=== PATIENT | male | born 1955 | race Caucasian/White ===

== ENCOUNTER → 2020-07-03 09:50 | Outpatient (BNVA) | payer BC, MEDICARE, SELFPAY | PROVIDERS: PCP Internal Medicine; Visit Provider Orthopaedic Surgery | DX: Z76.89 Persons encountering health services in other specified circumstances (principal) ==

== ENCOUNTER 2021-11-25 09:00 | Outpatient (REF) | payer MEDICARE, SELFPAY ==
--- NOTE | ~2021-11-25 | XR_ITS ---
EXAMINATION: XR SHOULDER, LEFT CLINICAL INFORMATION: Left shoulder pain. COMPARISON: None TECHNIQUE: AP external rotation, Grashey, scapular Y, and axillary views of the left shoulder. FINDINGS: The bones and soft tissues are normal. No fracture. Glenohumeral and acromioclavicular alignment is anatomic with normal joint space. No abnormal soft tissue calcifications. XR/XR shoulder LT min 2V IMPRESSION: Unremarkable left shoulder.
[2021-11-25 09:20] LABS: MANUAL DIFF FLAG NO
[2021-11-25 09:37] LABS: Basophils Percent Auto 0.5 % (0-2); Eosinophils Absolute Auto 0.1 X10*3/uL (0.0-0.4); Eosinophils Percent Auto 1.1 % (0-4); Hematocrit 49.1 % (42.0-52.0); Imm Gran Abs Auto 0.04 X10*3/uL (0.00-0.03); Imm Gran Pct Auto 0.5 % (0.0-0.4); Lymphocytes Absolute Auto 1.8 X10*3/uL (1.2-4.9); Mean Corpuscular HGB Conc 32.6 g/dl (31.0-36.0); Mean Corpuscular Hemoglobin 28.2 pg (27.0-33.0); Mean Corpuscular Volume 86.4 fL (80.0-98.0); Mean Platelet Volume 11.5 fL (9.4-12.4); Monocytes Percent Auto 10.9 % (2-11); Neutrophils Absolute Auto 5.9 x10*3/uL (2.0-8.3); Platelet Count 169 X10*3/uL (160-400); Red Blood Count 5.68 X10*6/uL (4.60-5.80); Red Cell Distribution Width 13.2 % (11.0-16.0); White Blood Count 8.8 X10*3/uL (4.8-10.8)
[2021-11-25 10:11] LABS: Alanine Aminotransferase 35 U/L (0-40); Albumin Level 4.4 g/dL (3.5-5.0); Alkaline Phosphatase 108 U/L (39-117); Anion Gap 13 (12-20); Aspartate Amino Transferase 19 U/L (5-37); Bilirubin Total 0.6 mg/dL (0.0-1.0); Blood Urea Nitrogen 21 mg/dL (9-16); Calcium 9.8 mg/dL (8.4-10.2); Carbon Dioxide 26 mmol/L (22-29); Chloride 106 mmol/L (96-108); Cholesterol 193 mg/dL; Estimated Glomerular Filt Rate > 60; Glucose Fasting 105 mg/dL (60-99); HDL Cholesterol 29 mg/dL; LDL Cholesterol Calculated 96 mg/dl; Potassium 4.5 mmol/L (3.3-5.1); Sodium 140 mmol/L (135-145); Total Protein 7.4 g/dL (6.5-8.0); Triglycerides 341 mg/dL
[2021-11-25 10:25] LABS: Thyroid Stimulating Hormone 1.81 uIU/mL (0.32-4.0)
[2021-11-26 14:33] LABS: Prostate Specific Antigen 2.25 ng/mL (<0.05-4.0); Vitamin D 25-OH Total 17.6 ng/mL (>30)
[2021-11-30 21:06] LABS: Testosterone, Free 51.7 pg/mL (35.0-155.0); Testosterone, Total 281 ng/dL (250-1100)
== END 2021-11-25 09:01 | disposition home or self-care (01) ==
LOC: HO.LAB 09:00
PROVIDERS: PCP Internal Medicine; Visit Provider Internal Medicine
DX: Z00.00 Encounter for general adult medical examination without abnormal findings (principal); Z12.5 Encounter for screening for malignant neoplasm of prostate; M25.512 Pain in left shoulder; I10 Essential (primary) hypertension; N52.9 Male erectile dysfunction, unspecified; K59.00 Constipation, unspecified
CPT/HCPCS: 36415; 73030; 80053; 80061; 82306; 84153; 84402; 84403; 84443; 85025

== ENCOUNTER 2022-10-15 08:01 | Outpatient (REF) | payer MEDICARE, SELFPAY ==
[2022-10-15 08:18] LABS: MANUAL DIFF FLAG NO
[2022-10-15 08:46] LABS: Basophils Percent Auto 0.5 % (0-2); Eosinophils Absolute Auto 0.1 X10*3/uL (0.0-0.4); Eosinophils Percent Auto 1.4 % (0-4); Hematocrit 48.5 % (42.0-52.0); Imm Gran Abs Auto 0.03 X10*3/uL (0.00-0.03); Imm Gran Pct Auto 0.3 % (0.0-0.4); Lymphocytes Absolute Auto 1.9 X10*3/uL (1.2-4.9); Lymphocytes Percent Auto 21.8 % (20-40); Mean Corpuscular Hemoglobin 28.2 pg (27.0-33.0); Mean Corpuscular Volume 85.4 fL (80.0-98.0); Monocytes Absolute Auto 0.9 X10*3/uL (0.1-1.2); Monocytes Percent Auto 10.6 % (2-11); Neutrophils Absolute Auto 5.7 x10*3/uL (2.0-8.3); Neutrophils Percent Auto 65.4 % (45-73); Platelet Count 168 X10*3/uL (160-400); Red Blood Count 5.68 X10*6/uL (4.60-5.80); Red Cell Distribution Width 13.2 % (11.0-16.0); White Blood Count 8.7 X10*3/uL (4.8-10.8)
[2022-10-15 09:11] LABS: Alanine Aminotransferase 32 U/L (0-40); Albumin Level 4.4 g/dL (3.5-5.0); Alkaline Phosphatase 100 U/L (39-117); Anion Gap 15 (12-20); Aspartate Amino Transferase 20 U/L (5-37); Bilirubin Total 1.3 mg/dL (0.0-1.0); Blood Urea Nitrogen 18 mg/dL (9-16); Calcium 9.9 mg/dL (8.4-10.2); Carbon Dioxide 26 mmol/L (22-29); Chloride 105 mmol/L (96-108); Cholesterol 172 mg/dL; Estimated Glomerular Filt Rate > 60; Glucose Fasting 120 mg/dL (60-99); HDL Cholesterol 32 mg/dL; LDL Cholesterol Calculated 89 mg/dl; Potassium 4.9 mmol/L (3.3-5.1); Sodium 141 mmol/L (135-145); Triglycerides 259 mg/dL
[2022-10-15 09:30] LABS: Thyroid Stimulating Hormone 1.78 uIU/mL (0.32-4.0); Vitamin D 25-OH Total 24.7 ng/mL (>30)
== END 2022-10-15 08:02 | disposition home or self-care (01) ==
LOC: HO.LAB 08:01
PROVIDERS: PCP Internal Medicine; Visit Provider Internal Medicine
DX: I10 Essential (primary) hypertension (principal); N52.9 Male erectile dysfunction, unspecified; K29.00 Acute gastritis without bleeding; Z12.5 Encounter for screening for malignant neoplasm of prostate
CPT/HCPCS: 36415; 80053; 80061; 82306; 84153; 84443; 85025

== ENCOUNTER 2023-01-27 14:29 | Outpatient (REF) | payer MEDICARE, SELFPAY | END 2023-01-27 14:30 | disposition home or self-care (01) | LOC: HO.SH 14:29 | PROVIDERS: Visit Provider Internal Medicine | DX: Z01.118 Encounter for examination of ears and hearing with other abnormal findings (principal); H90.3 Sensorineural hearing loss, bilateral | CPT/HCPCS: 92557; 92567 ==

== ENCOUNTER 2023-01-27 15:53 | Outpatient (REF) | payer SELFPAY | END 2023-01-27 15:54 | disposition home or self-care (01) | LOC: HO.HAP 15:53 | PROVIDERS: Visit Provider Internal Medicine | DX: Z46.1 Encounter for fitting and adjustment of hearing aid (principal); H90.3 Sensorineural hearing loss, bilateral | CPT/HCPCS: V5011; V5020 ==

== ENCOUNTER 2023-07-11 08:03 | Outpatient (REF) | payer MEDICARE, SELFPAY ==
[2023-07-11 09:42] LABS: Alanine Aminotransferase 39 U/L (0-40); Albumin Level 4.2 g/dL (3.5-5.0); Alkaline Phosphatase 95 U/L (39-117); Anion Gap 13 (12-20); Aspartate Amino Transferase 25 U/L (5-37); Bilirubin Total 0.8 mg/dL (0.0-1.0); Blood Urea Nitrogen 25 mg/dL (9-16); Calcium 9.4 mg/dL (8.4-10.2); Carbon Dioxide 24 mmol/L (22-29); Chloride 110 mmol/L (96-108); Cholesterol 164 mg/dL (<200); Estimated Glomerular Filt Rate > 60; Glucose Fasting 115 mg/dL (60-99); HDL Cholesterol 30 mg/dL (>40); LDL Cholesterol Calculated 101 mg/dL (<100); Potassium 4.2 mmol/L (3.3-5.1); Sodium 143 mmol/L (135-145); Total Protein 7.2 g/dL (6.5-8.0); Triglycerides 167 mg/dL (<150)
== END 2023-07-11 08:04 | disposition home or self-care (01) ==
LOC: HO.LAB 08:03
PROVIDERS: PCP Internal Medicine; Visit Provider Internal Medicine
DX: Z00.00 Encounter for general adult medical examination without abnormal findings (principal); I10 Essential (primary) hypertension; E78.1 Pure hyperglyceridemia
CPT/HCPCS: 36415; 80053; 80061

== ENCOUNTER 2023-11-11 08:16 | Outpatient (REF) | payer MEDICARE, SELFPAY ==
[2023-11-11 08:29] LABS: MANUAL DIFF FLAG NO
[2023-11-11 08:52] LABS: Basophils Absolute Auto 0.1 X10*3/uL (0.0-0.2); Basophils Percent Auto 0.6 % (0-2); Eosinophils Absolute Auto 0.2 X10*3/uL (0.0-0.4); Eosinophils Percent Auto 1.7 % (0-4); Hematocrit 47.8 % (42.0-52.0); Hemoglobin 15.7 g/dl (14.0-18.0); Imm Gran Abs Auto 0.05 X10*3/uL (0.00-0.03); Imm Gran Pct Auto 0.6 % (0.0-0.4); Lymphocytes Percent Auto 22.4 % (20-40); Mean Corpuscular HGB Conc 32.8 g/dl (31.0-36.0); Mean Corpuscular Hemoglobin 28.4 pg (27.0-33.0); Mean Corpuscular Volume 86.6 fL (80.0-98.0); Mean Platelet Volume 11.2 fL (9.4-12.4); Monocytes Absolute Auto 0.8 X10*3/uL (0.1-1.2); Monocytes Percent Auto 9.2 % (2-11); Neutrophils Absolute Auto 5.8 x10*3/uL (2.0-8.3); Neutrophils Percent Auto 65.5 % (45-73); Platelet Count 175 X10*3/uL (160-400); Red Blood Count 5.52 X10*6/uL (4.60-5.80); Red Cell Distribution Width 13.2 % (11.0-16.0); White Blood Count 8.9 X10*3/uL (4.8-10.8)
[2023-11-11 09:34] LABS: Alanine Aminotransferase 26 U/L (0-40); Albumin Level 4.2 g/dL (3.5-5.0); Alkaline Phosphatase 115 U/L (39-117); Anion Gap 11 (12-20); Aspartate Amino Transferase 18 U/L (5-37); Bilirubin Total 0.6 mg/dL (0.0-1.0); Blood Urea Nitrogen 15 mg/dL (9-16); Calcium 9.4 mg/dL (8.4-10.2); Carbon Dioxide 29 mmol/L (22-29); Chloride 107 mmol/L (96-108); Cholesterol 189 mg/dL (<200); Estimated Glomerular Filt Rate > 60; Glucose Fasting 126 mg/dL (60-99); HDL Cholesterol 29 mg/dL (>40); LDL Cholesterol Calculated 112 mg/dL (<100); Potassium 4.6 mmol/L (3.3-5.1); Sodium 142 mmol/L (135-145); Total Protein 7.3 g/dL (6.5-8.0); Triglycerides 244 mg/dL (<150)
[2023-11-11 09:35] LABS: Estimated Average Glucose 126 mg/dL; Hemoglobin A1C 164.3839 umol/L
[2023-11-11 09:52] LABS: PSA,Total (Free>4and<10) 3.23 ng/mL (0.00-4.00); Thyroid Stimulating Hormone 1.23 uIU/mL (0.32-4.0); Vitamin D 25-OH Total 9.8 ng/mL (>30)
== END 2023-11-11 08:17 | disposition home or self-care (01) ==
LOC: HO.LAB 08:16
PROVIDERS: PCP Internal Medicine; Visit Provider Internal Medicine
DX: E78.1 Pure hyperglyceridemia (principal); I10 Essential (primary) hypertension; N52.9 Male erectile dysfunction, unspecified; Z12.5 Encounter for screening for malignant neoplasm of prostate
CPT/HCPCS: 36415; 80053; 80061; 82306; 83036; 84153; 84443; 85025

== ENCOUNTER 2024-02-28 08:07 | Outpatient (REF) | payer MEDICARE, SELFPAY ==
[2024-02-28 09:52] LABS: Vitamin D 25-OH Total 55.2 ng/mL (>30)
== END 2024-02-28 08:08 | disposition home or self-care (01) ==
LOC: HO.LAB 08:07
PROVIDERS: PCP Internal Medicine; Visit Provider Internal Medicine
DX: E55.9 Vitamin D deficiency, unspecified (principal)
CPT/HCPCS: 36415; 82306

== ENCOUNTER 2024-07-18 07:58 | Outpatient (REF) | payer MEDICARE, SELFPAY ==
--- NOTE | 2024-07-18 09:40 | MHC.AU.HA3 ---
Hearing Instrument Follow-Up- Binaural Date of Visit: 07/18/24 Right Ear: Make, Model, Color, Serial Number: Phondavid CROS [id number] SN: [id number] Color: Champagne Back Panel Padder Repair Warranty: 10/28/2022 Back Panel Padder Loss and Damage Warranty: 10/28/2022 Battery Size: 312 Dividend Clerk/Slim Tube: #3 CROS Tube Earmold/Dome/CShell/SlimTip:Small open dome Dispensed By: [facility] Date of Fittin08/21/2019 Left Ear: Make, Model, Color, Serial Number: Low Reed B 50-M SN: [id number] Color: Champagne Back Panel Padder Repair Warranty: 10/28/2022 Back Panel Padder Loss and Damage Warranty: 10/28/2022 Battery Size: 312 Dividend Clerk/Slim Tube: #3 Slim Tube Earmold/Dome/CShell/SlimTip: Medium closed dome Dispensed By: [facility] Date of Fittin08/21/2019 Follow-Up Summary: Updated hearing test - see audio. Occluding cerumen, right ear; Significant, non-occluding cerumen, left ear - Recommend bilateral cerumen removal by PCP. Lost right CROS device. Discussed possible VEL[place]SQUEZ benefit through [facility] Medicare Advantage insurance. Lester insists no benefit, only his FSA card which he can use anywhere. Advised to inquire about possible 3rd alliance party benefit. Briefly discussed new HAs, provided benito list. Recommended two new HAs; however, Lester interested in only replacing right CROS device. Advised no longer made by leak hunter due to age but can look into refurbished device through [facility]. Will call Lester with information from Tina regarding refurbished Phonak CROS [id number], if available, pricing, etc. Recommendations: Hearing instrument follow-up or maintenance as needed. Please contact our clinic with any questions or concerns. Diagnosis Code(s): Primary Diagnosis: H90.3 Bilateral Sensorineural Hearing Loss Signature: Provider: Min Vargas, [facility]
== END 2024-07-18 07:59 | disposition home or self-care (01) ==
LOC: HO.SH 07:58
PROVIDERS: Visit Provider Internal Medicine
DX: Z01.118 Encounter for examination of ears and hearing with other abnormal findings (principal); H90.3 Sensorineural hearing loss, bilateral
CPT/HCPCS: 92557

== ENCOUNTER 2024-08-31 09:05 | Outpatient (REF) | payer SELFPAY ==
--- OUTSIDE RECORDS SUMMARY | 2024-08-31 09:19 | XMS_ITS ---
Author [facility] Address [address] [place], [place] [id number] Care Team Providers Care Recording Engineer Name Role Phone Master Pollack Primary Care Provider REASON FOR VISIT Needs call back from office MEDICATIONS Medication SIG (Take, Route, Frequency, Duration) Notes Start Date End Date Status Amoxicillin-Pot Clavulanate 875-125 MG 1 tablet with food Orally every 12 hrs for 7 days 07/11/2024 Active Encounters Encounter Location Date Provider Diagnosis [facility] [address] [place] [phone] 07/11/2024 Master Pollack PLAN OF TREATMENT Medication Medication Name Sig Start Date Stop Date Notes Amoxicillin-Pot Clavulanate 875-125 MG 1 tablet with food Orally every 12 hrs for 7 days 07/11/2024
--- OUTSIDE RECORDS SUMMARY | 2024-08-31 09:19 | XMS_ITS ---
Author Organization [facility], [facility] [address] [place], [place] [id number] Care Team Providers Care Supervisor Buffing And Pasting Name Role Phone Master Pollack Primary Care Provider REASON FOR VISIT Message Encounters Encounter Location Date Provider Diagnosis Master Pollack DO, FACP [address] [place] [phone] 07/18/2024 Master Pollack PLAN OF TREATMENT No Information
--- OUTSIDE RECORDS SUMMARY | 2024-08-31 09:19 | XMS_ITS | Patient Health Record ---
Author Organization Master Pollack DO, [facility] Address [address] [place] [id number] Care Team Providers Care Tube Draw Helper Name Role Phone Master Pollack Primary Care Provider ALLERGIES No Known Allergies RESULTS Component Value Reference Range Notes Complete Blood Count Auto Di ff Reviewed date:11/11/2023 11:27:01 AM Interpretation:Normal Performing Lab:[facility], [address] [place] [phone] Notes/Report: White Blood Count 8.9 4.8-10.8 X10*3/uL Red Blood Count 5.52 4.60-5.80 X10*6/uL Hemoglobin 15.7 14.0-18.0 g/dl Hematocrit 47.8 42.0-52.0 % Mean Corpuscular Volume 86.6 80.0-98.0 fL Mean Corpuscular Hemoglobin 28.4 27.0-33.0 pg Mean Corpuscular HGB Conc 32.8 31.0-36.0 g/dl Red Cell Distribution Width 13.2 11.0-16.0 % Platelet Count 175 160-400 X10*3/uL Mean Platelet Volume 11.2 9.4-12.4 fL Neutrophils Percent Auto 65.5 45-73 % Imm Gran Pct Auto 0.6 0.0-0.4 % Lymphocytes Percent Auto 22.4 20-40 % Monocytes Percent Auto 9.2 2-11 % Eosinophils Percent Auto 1.7 0-4 % Basophils Percent Auto 0.6 0-2 % NRBC Pct Auto 0.0 0.0-0.2 /100WBC Neutrophils Absolute Auto 5.8 2.0-8.3 x10*3/u L Imm Gran Abs Auto 0.05 0.00-0.03 X10*3/uL Lymphocytes Absolute Auto 2.0 1.2-4.9 X10*3/u L Monocytes Absolute Auto 0.8 0.1-1.2 X10*3/uL Eosinophils Absolute Auto 0.2 0.0-0.4 X10*3/u L Basophils Absolute Auto 0.1 0.0-0.2 X10*3/uL NRBC Abs Auto 0.000 0.0-0.012 X10*3/uL Comprehensive Mathews. Panel Fa st Reviewed date:11/11/2023 11:27:01 AM Interpretation:Abnormal Performing Lab:[facility], [address] [place] [phone] Notes/Report: Sodium 142 135-145 mmol/L Potassium 4.6 3.3-5.1 mmol/L Chloride 107 96-108 mmol/L Carbon Dioxide 29 22-29 mmol/L Anion Gap 11 12-20 Blood Urea Nitrogen 15 9-16 mg/dL Creatinine 1.03 0.5-1.4 mg/dL Estimated Glomerular Filt Rate > 60 NOTE: For -Armenian individuals, multiply the result by 1.210. Chronic Kidney Disease: Estimated GFR < 60 mL/min/1.73m2 Severe Kidney Disease: Estimated GFR < 15 mL/min/1.73m2 Glucose Fasting 126 60-99 mg/dL A fasting glucose of 126 mg/dl or greater on more than one occasion is considered diagnostic of diabetes. Calcium 9.4 8.4-10.2 mg/dL Bilirubin Total 0.6 0.0-1.0 mg/dL Aspartate Amino Transferase 18 5-37 U/L Alanine Aminotransferase 26 0-40 U/L Total Protein 7.3 6.5-8.0 g/dL Albumin Level 4.2 3.5-5.0 g/dL Alkaline Phosphatase 115 39-117 U/L Lipid Panel Reviewed date:11/11/2023 11:27:01 AM Interpretation:Abnormal Performing Lab:[facility], [address] [place] [phone] Notes/Report: Triglycerides 244 <150 mg/dL Desirable Triglyceride: less than 150 mg/dL Borderline High Triglyceride 150-199 mg/dL High Triglyceride: 200-499 mg/dL Very High Triglyceride: greater than or equal to 5OO mg/dL Cholesterol 189 <200 mg/dL Desirable Cholesterol: less than 200 mg/dL Borderline High Cholesterol: 200-239 mg/dL High Cholesterol: greater than 239 mg/dL LDL Cholesterol Calculated 112 <100 mg/dL Desirable LDL: less than 100 mg/dL Near Optimal/Above Optimal LDL: 110-129 mg/dL Borderline High LDL: 130-159 mg/dL High LDL: 160-189 mg/dL Very High LDL: greater than or equal to 190 mg/dL HDL Cholesterol 29 >40 mg/dL Desirable HDL: greater than 40 mg/dL Note: This HDL assay may give artificially low results in patients with liver disease. PSA,Total (Free>4and<10) Reviewed date:11/11/2023 11:27:51 AM Interpretation:Normal Performing Lab:[facility], [address] [place] [phone] Notes/Report: PSA,Total (Free>4and<10) 3.23 0.00-4.00 ng/mL A Free PSA was not performed: The percentage of Free PSA can be used to enhance the differentiation of prostate cancer from benign prostatic disease in subjects whose PSA levels are between 4.0 and 10.0 ng/mL. For subjects whose PSA levels are below 4.0 or above 10.0 ng/mL, the risk of prostate cancer is determined on the basis of the PSA alone. Therefore the % Free PSA is recommended only for those subjects whose PSA levels are between 4.0 and 10.0 ng/mL. PSA methodology: Hoff Alinity i Chemiluminescent Microparticle Immunoassay (CMIA) Vitamin D 25-OH Total Reviewed date:11/11/2023 11:27:01 AM Interpretation:Abnormal Performing Lab:[facility], [address] [place] [phone] Notes/Report: Vitamin D 25-OH Total 9.8 >30 ng/mL Health Based Reference Values* < 20 ng/mL Deficient 20-30 ng/mL Insufficient > 30 ng/mL Sufficient *Tiarra SIDHU. N Engl J Med. 2007;357:266-280 Care must be taken in interpreting Vitamin D results from different laboratories and methodologies. Published data demonstrated that results from patients undergoing hemodialysis may show a negative bias when tested with various automated 25-OH vitamin D assays when compared to LC-MS/MS. When testing samples from patients whose predominant form of Vitamin D is Vitamin D2, such as patients receiving Vitamin D2 supplementation, results that are subtherapeutic should be confirmed with another method such as LC-MS/MS. Thyroid Stimulating Hormone Reviewed date:11/11/2023 11:27:01 AM Interpretation:Normal Performing Lab:[facility], [address] [place] [phone] Notes/Report: Thyroid Stimulating Hormone 1.23 0.32-4.0 uIU/ mL TSH 3rd Generation ([facility] [employer]) Hemoglobin A1c Reviewed date:11/11/2023 11:27:35 AM Interpretation:Abnormal Performing Lab:[facility], [address] [place] [phone] Notes/Report: Hemoglobin A1c % 6.0 <6.0 % Hemoglobin A1C Reference Range Adults: 4.8 - 6.0 % Non diabetic: < 6.0 % Goal: < 7.0 % Additional Action Suggested: > 8.0 % Note: Hemoglobin A1c results are invalid for patients with abnormal amounts of HbF. Blood transfusions may impact the HbA1c concentration in the patient sample. Estimated Average Glucose 126 eAG = Estimated average glucose which is %A1C expressed as average glucose, using the formula of the G1P-Fuswevs Average Glucose study (ADAG), Diabetes Care, Vol.31,#8, Apr. 2007 Vitamin D 25-OH Total Reviewed date:02/28/2024 11:17:34 AM Interpretation:Normal Performing Lab:[facility], [address] [place] [phone] Notes/Report: Vitamin D 25-OH Total 55.2 >30 ng/mL Health Based Reference Values* < 20 ng/mL Deficient 20-30 ng/mL Insufficient > 30 ng/mL Sufficient *Tiarra SIDHU. N Engl J Med. 2007;357:266-280 Care must be taken in interpreting Vitamin D results from different laboratories and methodologies. Published data demonstrated that results from patients undergoing hemodialysis may show a negative bias when tested with various automated 25-OH vitamin D assays when compared to LC-MS/MS. When testing samples from patients whose predominant form of Vitamin D is Vitamin D2, such as patients receiving Vitamin D2 supplementation, results that are subtherapeutic should be confirmed with another method such as LC-MS/MS. REASON FOR REFERRAL Reason Neck pain Left hand pain Diagnosis 1 Neck pain (M54.2) Diagnosis 2 Left hand pain (M79. 642) Referral Organization Master Min FACP Referring Provider First Name Master Referring Provider Last Name Ranjeet Referring Provider Speciality Internal M edicine Referred Provider JAZMINE Physical Sierra Olivas Referred Provider Specialty Physical The rapist Referral Priority Routine Referral Appointment Date 05/04/2024 Reason Hearing loss Diagnosis 1 Unspecified hearing loss, right ear (H91.91) Referral Organization Master Min FACP Referring Provider First Name Master Referring Provider Last Name Ranjeet Referring Provider Speciality Internal M edicine Referred Provider [facility] [place] Referred Provider Specialty Audiologists General Notes Nessa Molina 4 10:28:56 AM EDT > Referral faxed prior to scheduling. Referral Priority Routine MEDICATIONS Medication SIG (Take, Route, Frequency, Duration) Notes Start Date End Date Status Atorvastatin Calcium 20 MG 1 tablet Oral ly Once a day for 90 days Active Omeprazole 20 MG 1 capsule 30 minutes before morning meal as needed Orally Once a day for 90 days Active Multivitamin - 1 tablet Orally Once a day Active LORazepam 1 MG 1 tablet as needed O rally Twice a day 07/03/2024 Active amLODIPine Besylate 5 MG 1 tablet Orally Once a day for 30 day(s) 07/06/2024 Active amLODIPine Besylate 5 MG 1 tablet Orally Once a day Active Amoxicillin-Pot Clavulanate 875-125 MG 1 tablet with food Orally every 12 hrs for 7 days 07/11/2024 Active Omeprazole 20 MG 1 capsule 30 minutes before morning meal as needed Orally Once a day 07/06/2024 Active IMMUNIZATIONS Vaccine Route Administration Date Status Comme nts Influenza High Dose IM Intramuscular 06/09/2020 Administer ed COVID-19 Moderna Vaccine Unknown 11/07/2020 Administere d COVID-19 Moderna Vaccine Unknown 12/05/2020 Administere d COVID-19 Pfizer BioNTech Unknown 09/06/2021 Administere d SOCIAL HISTORY Tobacco Use: Social History Observation Description Date Details (start date - stop date) Never Smoker NA - NA Sex Assigned At : Social History Observation Description Sex Assigned At Unknown Tobacco Use/Smoking Question Answer Notes Patient is a nonsmoker Additional Findings: Tobacco Non-User Cu rrent non-smoker, currently using no form of tobacco Alcohol Screen Question Answer Notes Did you have a drink contain ing alcohol in the past year? Yes How often did you have a dri nk containing alcohol in the past year? Monthly or less (1 point) How many drinks did you have on a typical day when you were drinking in the past year? 1 or 2 drinks (0 point) How often did you have 6 or more drinks on one occasion in the past year? Never (0 point) Points 1 Interpretation Negative PROBLEMS Problem Type ICD Code Onset Dates Problem Status W/U Status Risk SNOMED Code Notes Problem Essential hypertensi on (I10) Active confirmed 80085189 Problem Depression, unspecif ied depression type (F32.9) Active confirmed 19821698 Problem Hearing loss, unspecified hearing loss type, unspecified laterality (H91.90) Active confirmed 46994049 Problem Erectile dysfunction , unspecified erectile dysfunction type (N52.9) Active confirmed 585926807 Problem Twitch (R25.3) Active confirmed 5510676 2 Problem Hypertriglyceridemia (E78.1) Active confirmed 262113796 Problem Hearing loss of righ t ear, unspecified hearing loss type (H91.91) Active confirmed Hearing loss (96045853) Problem Vitamin D deficiency (E55.9) Active confirmed 93228164 Problem Unspecified hearing loss, right ear (H91.91) Active confirmed Hearing loss (10747523) VITAL SIGNS Blood pressure diastolic 60 mm Hg 11/15/2023 Height 69.50 in 11/15/2023 Blood pressure systolic 134 mm Hg 11/15/2023 Weight 201 lbs 11/15/2023 BMI 29.25 kg/m2 11/15/2023 Encounters Encounter Location Date Provider Diagnosis Master Pollack DO, [address] [id number] 11/15/2023 Master Pollack Encounter for genera l adult medical examination without abnormal findings Z00.00 ; Essential hypertension I10 ; Hypertriglyceridemia E78.1 ; Erectile dysfunction, unspecified erectile dysfunction type N52.9 and Vitamin D deficiency E55.9 Master Pollack DO, [facility] [address] [place], [place] [id number] 05/08/2024 Master Pollack DO, [address] [id number] 09/13/2023 Master Pollack DO, [facility] [address] [place], [place] [id number] 03/19/2024 Master Pollack Master Pollack DO, [facility] [address] [place], [place] [id number] 03/20/2024 Master Ranjeetthiago Pollack DO, [address] [id number] 03/21/2024 Master Pollack Master Corado Ranjeet DO, [facility] [address] [place], [place] [id number] 04/16/2024 Master Ranjeet Master Pollack DO, [address] [id number] 05/02/2024 Master Ranjeet Master Pollack DO, [address] [id number] 07/03/2024 Master Ranjeet Master Pollack DO, [address] [id number] 07/11/2024 Master Ranjeet Master Pollack , [address] [id number] 07/18/2024 Master Ranjeet Master Pollack , [address] [id number] 07/06/2024 Master Pollack Vitamin D deficiency E55.9 ; Essential hypertension I10 and Hypertriglyceridemia E78.1 ASSESSMENTS Encounter Date Diagnosis Assessment Notes Treatment Notes Treatment Clinical Notes 11/15/2023 Encounter for genera l adult medical examination without abnormal findings (ICD-10 - Z00.00) Diet, exercise, weight loss Advise Prevnar 20 vaccination 11/15/2023 Essential hypertensi on (ICD-10 - I10) 07/06/2024 Vitamin D deficiency (ICD-10 - E55.9) 07/06/2024 Essential hypertensi on (ICD-10 - I10) 11/15/2023 Hypertriglyceridemia (ICD-10 - E78.1) 07/06/2024 Hypertriglyceridemia (ICD-10 - E78.1) 11/15/2023 Erectile dysfunction , unspecified erectile dysfunction type (ICD-10 - N52.9) 11/15/2023 Vitamin D deficiency (ICD-10 - E55.9) Take a multivitamin daily PLAN OF TREATMENT No Information Insurance Providers Payer Name Payer Address Payer Phone Subscriber Number Group Number Insured Name Patient Relationship to Insured Coverage Start Date Coverage End Date [employer]ICARE [address] [place], [place] [id number] Lester Lazcano Self - patient is the insured MEDICAL (GENERAL) HISTORY Medical History History ICD Code hypertension depression hypertriglyceridemia Vitamin D deficiency E55.9 Surgical History Surgery Date(Month/Year) vasectomy
--- OUTSIDE RECORDS SUMMARY | 2024-08-31 09:19 | XMS_ITS | Patient Health Record ---
Author Organization [facility] Address [address] [place] [address] Care Team Providers Care Gem Setter Name Role Phone Master Pollack MD Primary Care Provider Unavail able Leif Vaughn Unavailable [phone] Allergies No Known Allergies Reason For Referral No Information Medications Medication SIG (Take, Route, Frequency, Duration) Notes Start Date End Date Status Ciclopirox 0.77 % 1 application to aff ected area Externally Twice a day for 365 days Active amLODIPine Besylate 5 MG 1 tablet Once a day Active Atorvastatin Calcium 20 MG 1 tablet Once a day Active Social History Tobacco Use: Social History Observation Description Date Details (start date - stop date) Never Smoker NA - NA Tobacco Use/Smoking Question Answer Notes Are you a: nonsmoker Alcohol Screen Question Answer Notes Did you have a drink contain ing alcohol in the past year? Yes How often did you have a dri nk containing alcohol in the past year? Monthly or less (1 point) Points 1 Interpretation Negative Tobacco use other than smoking: Question Answer Notes Are you an other tobacco user? No Problems Problem Type SNOMED Code ICD Code Onset Dates Problem Status W/U Status Risk Notes Problem Tinea unguium (355818008) Tinea unguium (B35.1) Active confirmed Plan Of Treatment No Information Insurance Providers Payer Name Payer Address Payer Phone Subscriber Number Group Number Insured Name Patient Relationship to Insured Coverage Start Date Coverage End Date [facility] Medicare Preferred [address] [place] [address] [id number] Lester Lazcano Self - patient is the insured Medical (General) History Medical History History ICD Code Chicken pox High blood pressure Measles Mumps CAD Surgical History Surgery Date(Month/Year)
--- OUTSIDE RECORDS SUMMARY | 2024-08-31 09:19 | XMS_ITS ---
Author Organization Master Pollack DO, [facility] Address [address] [place], [place] [id number] Care Team Providers Care Ambulance Dispatcher Name Role Phone Master Pollack Primary Care Provider ALLERGIES No Known Allergies REASON FOR VISIT Follow up Vitamin D deficiency MEDICATIONS Medication SIG (Take, Route, Frequency, Duration) Notes Start Date End Date Status Atorvastatin Calcium 20 MG 1 tablet Oral ly Once a day Active Omeprazole 20 MG 1 capsule 30 minutes before morning meal as needed Orally Once a day for 90 days Active Multivitamin - 1 tablet Orally Once a day Active amLODIPine Besylate 5 MG 1 tablet Orally Once a day for 30 day(s) 07/06/2024 Active amLODIPine Besylate 5 MG 1 tablet Orally Once a day Active LORazepam 1 MG 1 tablet as needed O rally Twice a day 07/03/2024 Active Omeprazole 20 MG 1 capsule 30 minutes before morning meal as needed Orally Once a day 07/06/2024 Active SOCIAL HISTORY Tobacco Use: Social History Observation [...] Never (0 point) Points 1 Interpretation Negative Encounters Encounter Location Date Provider Diagnosis Master Pollack DO, [address] [id number] 07/06/2024 Master Pollack Vitamin D deficiency E55.9 ; Essential hypertension I10 and Hypertriglyceridemia E78.1 ASSESSMENTS Encounter Date Diagnosis Assessment Notes Treatment Notes Treatment Clinical Notes 07/06/2024 Vitamin D deficiency (ICD-10 - E55.9) 07/06/2024 Essential hypertensi on (ICD-10 - I10) 07/06/2024 Hypertriglyceridemia (ICD-10 - E78.1) PLAN OF TREATMENT Medication Medication Name Sig Start Date Stop Date Notes Atorvastatin Calcium 20 MG 1 tablet Orally Once a day Multivitamin - 1 tablet Orally Once a day amLODIPine Besylate 5 MG 1 tablet Orally Once a day for 30 day(s) 07/06/2024 LORazepam 1 MG 1 tablet as needed O rally Twice a day 07/03/2024 Omeprazole 20 MG 1 capsule 30 minutes before morning meal as needed Orally Once a day 07/06/2024 Next Appt Details Follow Up: 6 Months, Reason: H&P Progress Notes * Examination Category Sub-Category Detail Notes General Examination GENERAL APPEARANCE: in no ac resighini distress, well developed, well nourished LUNGS: breathing comfortabl y at rest PSYCH: alert, oriented, cog nitive function intact History and Physical Notes * HPI (History of Present Illness) Category Sub-Category Detail Notes New symptom(s) Telehealth Location of provider:: Pro merlosr's home address Location of patient:: Address listed in demographics for today's visit Patient identification confirmed using:: Name, Telehealth method:: Video co nference where patient is visible to the provider of care Consent:: Patient verbally c onsented to treatment, Patient verbally consented to billing insurance company, Patient informed of any privacy concerns related to method of visit Total time spent with patient (mins): 21 Disclaimer: This Telehealth visit is being conducted per CDC recommendations due to the COVID-19 outbreak.
--- NOTE | 2024-08-31 09:46 | MHC.AU.HA2 ---
Hearing Instrument Fitting- Adult- Binaural Date of Visit: 08/31/24 Hearing Instruments Dispensed: Right Ear: Make, Model, Color, Serial Number: Low CROS [id number] SN: [id number] Color: Champagne Guillotine Trimmer Repair Warranty: 08/21/2025 Guillotine Trimmer Loss and Damage Warranty: n/a [facility] Service Plan: n/a Battery Size: 312 Sales And Marketing Professional/Slim Tube: #3 CROS Tube Earmold/Dome/CShell/SlimTip: Small open dome Left Ear: Make, Model, Color, Serial Number: Low Bolero B 50-M SN: [id number] Color: Champagne Guillotine Trimmer Repair Warranty: 10/28/2022 Guillotine Trimmer Loss and Damage Warranty: 10/28/2022 [facility] Service Plan: n/a Battery Size: 312 Sales And Marketing Professional/Slim Tube: #3 Slim Tube Earmold/Dome/CShell/SlimTip: Medium closed dome Summary of Fitting: Dispensed refurbished CROS to replace lost. Transferred settings. Good subjective comfort and benefit reported. Recommendations: Recommendations: Patient does not feel follow-up is necessary at this time. Diagnosis Code(s): Primary Diagnosis: H90.3 Bilateral Sensorineural Hearing Loss Signature: Provider: Min Rubio, [facility]
== END 2024-08-31 09:06 | disposition home or self-care (01) ==
LOC: HO.HAP 09:05
PROVIDERS: Visit Provider Internal Medicine
DX: Z46.1 Encounter for fitting and adjustment of hearing aid (principal); H90.3 Sensorineural hearing loss, bilateral
CPT/HCPCS: V5181; V5221

== ENCOUNTER 2024-12-08 11:17 | Outpatient (AMB) | payer MEDICARE, SELFPAY ==
--- OUTSIDE RECORDS SUMMARY | 2024-12-08 11:20 | XMS_ITS ---
Author Organization [facility] Address [address] [place] [address] Care Team Providers Care Vending Enterprises Supervisor Name Role Phone Master Pollack MD Primary Care Provider Unavail able Leif Vaughn Unavailable [phone] Noelle Leon Unavailable [phone] REASON FOR VISIT red sore toe Encounters Encounter Location Date Provider Diagnosis [address] [address] 10/30/2024 Noelle Leon Plan Of Treatment No Information Progress Notes * Lester LAZCANODOB:1955 (68 yo M)Acc No.[id number]:10/30/2024 Patient:?Julian LAZCANOothy :1955???Age:68 Y???Sex:Male Address:[facility] [place], [address] * true * Date:? Generated for Printi ng/Faheydig/eTransmitting on:?12/08/2024 11:19 AM EDT
--- OUTSIDE RECORDS SUMMARY | 2024-12-08 11:20 | XMS_ITS | Patient Health Record ---
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 Role Phone Master Pollack MD Primary Care Provider Unavail able Leif Vaughn Unavailable [phone] Noelle Leon Unavailable [phone] Allergies No Known Allergies Reason For Referral [...] W/U Status Risk Notes Problem Tinea unguium ([id number]) Tinea unguium (B35.1) Active confirmed Encounters Encounter Location Date Provider [facility] [address] 10/30/2024 Noelle Leon Plan Of Treatment No Information Insurance Providers Payer Name Payer Address Payer Phone Subscriber Number Group Number Insured Name Patient Relationship to Insured Coverage Start Date Coverage End Date [facility] 65 Medicare Preferred [address] [place] [address] [phone] [id number] Lester Lazcano Self - patient is the insured Medical (General) History Medical History History ICD Code Chicken pox High blood pressure Measles Mumps CAD Surgical History Surgery Date(Month/Year)
--- OUTSIDE RECORDS SUMMARY | 2024-12-08 11:20 | XMS_ITS | Patient Health Record ---
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 Role Phone Master Pollack DO Primary Care Provider Unavail able Allergies No Known Allergies Reason For Referral No Information Medications Medication SIG (Take, Route, Frequency, Duration) Notes Start Date End Date Status dexAMETHasone 4 MG 1 tablet Orally thre e times a day for 5 days 02/19/2022 Active Atorvastatin Calcium 20 MG 1 tablet Oral ly Once a day for 30 day(s) Active amLODIPine Besylate 5 MG 1 tablet Orally Once a day for 30 day(s) Active Cyclobenzaprine HCl 5 MG TAKE 1 TABLET B Y MOUTH TWICE DAILY AT BEDTIME FOR 10 DAYS NEEDED for 10 Active Problems Problem Type SNOMED Code ICD Code Onset Dates Problem Status W/U Status Risk Notes Problem Disorder of lumbar disc (071188361) Lumbar disc disease (M51.9) Active confirmed Plan Of Treatment No Information Insurance Providers Payer Name Payer Address Payer Phone Subscriber Number Group Number Insured Name Patient Relationship to Insured Coverage Start Date Coverage End Date [employer] [address] [place], [place] [phone] [id number] Lester Lazcano Self - patient is the insured
[2024-12-08 11:25] VITALS: BP 130/80; PULSE 81; TEMP 37.2; O2SAT 95
--- NOTE | 2024-12-08 11:25 | MHC.OFFWIV ---
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 Allergies No Known Allergies [No Known Allergies*] Allergy (Verified 12/08/24 11:57) Medication List - Last Reconciled 12/08/24 by Elle Farrell, [facility] amlodipine 5 mg PO DAILY 90 days atorvastatin 20 mg PO DAILY bupropion HCl SR (Wellbutrin SR) 150 mg PO BID losartan 50 mg PO DAILY sildenafil 25 mg PO DAILY PRN Do you need a note to return to daycare/school/sports/work: No HPI HPI Comments History of Present Illness Details History Here today with complaints of right ear pain that started 4-5 days ago. He reports that the pain is worse since onset. He wears hearing aids at baseline but has not been able to wear in the right ear given the amount of pain. He denies any new changes in his hearing. He was deaf in right ear at baseline. He denies any fever, chills, sore throat, trauma to the ear. Use Tylenol with partial relief of symptoms. Physical Exam General: Awake, alert. No apparent distress Eyes: Sclera and conjunctiva clear bilaterally Ears: Right ear canal very narrow with a sharp turnover, full of mucus; unable to visualize the eardrum. Left ear tympanic membrane intact and clear. Discussion Notes The plan will be to treat him with Augmentin and Ciprodex. Unsure if there is tympanic membrane rupture or not. Advised to keep the hearing aid out of the right ear until his ear is completely resolved. Okay to use [id number] analgesia. Reviewed that follow-up to evaluate symptom resolution is important, and patient can return or consult with Dr. Burrell for continuing care. Patient Instructions - Take Augmentin as prescribed: 1 tablet, 2 times per day with food for 7 days. - Use prescribed ear drops as per instructions once insurance approval is confirmed. - Avoid inserting hearing aids and keep the right ear dry and clean. - Monitor for any worsening symptoms and seek immediate care if the condition does not improve. - Schedule a follow-up or same-day visit if symptoms persist. [facility] Medical History Deafness in right ear Hematoma of left knee region Hypertension Thrombocytopenia Family History Mother No problems noted. Father No problems noted. 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 Medications: New ciprofloxacin-dexamethasone 0.3-0.1 % RIGHT 4 drps otic (ears) BID 7.5 mL 0RF 7 days amoxicillin-pot clavulanate 875-125 mg 1 tab PO BID 14 tabs 0RF 7 days Coding Level of Care Code Est Pt Level 3 (64376) Diagnoses Acute mucoid otitis media of right ear H65.191 Otitis media type: mucoid Chronicity: acute
== END 2024-12-08 12:05 | disposition home or self-care (01) ==
LOC: HO.HMCWIC 11:17
PROVIDERS: PCP Internal Medicine; Visit Provider Nurse Practitioner Family
DX: H65.191 Other acute nonsuppurative otitis media, right ear (principal)

== ENCOUNTER → 2024-12-08 11:17 | Outpatient (BNVA) | payer MEDICARE, SELFPAY | PROVIDERS: PCP Internal Medicine; Visit Provider Nurse Practitioner Family | DX: H65.191 Other acute nonsuppurative otitis media, right ear (principal) | CPT/HCPCS: 99212 ==

== ENCOUNTER 2025-01-17 07:59 | Outpatient (REF) | payer MEDICARE, SELFPAY ==
[2025-01-17 08:11] LABS: MANUAL DIFF FLAG NO
[2025-01-17 08:53] LABS: Basophils Percent Auto 0.4 % (0-2); Eosinophils Absolute Auto 0.2 X10*3/uL (0.0-0.4); Eosinophils Percent Auto 1.8 % (0-4); Hemoglobin 16.1 g/dl (14.0-18.0); Imm Gran Abs Auto 0.04 X10*3/uL (0.00-0.03); Imm Gran Pct Auto 0.4 % (0.0-0.4); Lymphocytes Absolute Auto 2.2 X10*3/uL (1.2-4.9); Lymphocytes Percent Auto 23.3 % (20-40); Mean Corpuscular HGB Conc 34.3 g/dl (31.0-36.0); Mean Corpuscular Volume 84.5 fL (80.0-98.0); Mean Platelet Volume 11.2 fL (9.4-12.4); Monocytes Percent Auto 10.3 % (2-11); Neutrophils Percent Auto 63.8 % (45-73); Platelet Count 172 X10*3/uL (160-400); Red Blood Count 5.56 X10*6/uL (4.60-5.80); Red Cell Distribution Width 13.2 % (11.0-16.0); White Blood Count 9.4 X10*3/uL (4.8-10.8)
[2025-01-17 09:04] LABS: Estimated Average Glucose 134 mg/dL; Hemoglobin A1c % 6.3 % (<6.0); Total Hemoglobin (HGBA1C) 4090.3179 umol/L
[2025-01-17 09:30] LABS: Alanine Aminotransferase 60 U/L (0-40); Albumin Level 4.3 g/dL (3.5-5.0); Alkaline Phosphatase 101 U/L (39-117); Anion Gap 12 (12-20); Aspartate Amino Transferase 30 U/L (5-37); Bilirubin Direct 0.2 mg/dL (0.0-0.5); Bilirubin Total 0.9 mg/dL (0.0-1.0); Blood Urea Nitrogen 16 mg/dL (9-16); Calcium 9.4 mg/dL (8.4-10.2); Carbon Dioxide 26 mmol/L (22-29); Chloride 106 mmol/L (96-108); Cholesterol 186 mg/dL (<200); Estimated Glomerular Filt Rate > 60; Glucose Fasting 125 mg/dL (60-99); HDL Cholesterol 30 mg/dL (>40); LDL Cholesterol Calculated 92 mg/dL (<100); Magnesium 2.1 mg/dL (1.6-2.6); Sodium 140 mmol/L (135-145); Total Protein 7.2 g/dL (6.5-8.0); Triglycerides 320 mg/dL (<150)
[2025-01-17 09:35] LABS: Erythrocyte Sedimentation Rate 9 MM/HR (0-15)
[2025-01-17 09:51] LABS: TSH reflex Free T4 1.62 uIU/mL (0.32-4.0); Vitamin D 25-OH Total 27.9 ng/mL (>30)
[2025-01-17 10:00] LABS: PSA,Total (Free>4and<10) 4.51 ng/mL (0.00-4.00)
[2025-01-17 10:01] LABS: Folate 14.2 ng/mL (> or = 4.0); Vitamin B12 518 pg/mL (200-900)
[2025-01-18 11:04] LABS: Free Prostate Spec Ag 0.9 ng/mL; Percent Free Prostate Spec Ag 23 % (calc) (>25)
== END 2025-01-17 08:00 | disposition home or self-care (01) ==
LOC: HO.LAB 07:59
PROVIDERS: PCP Internal Medicine; Visit Provider Physician Assistant Medical
DX: Z00.00 Encounter for general adult medical examination without abnormal findings (principal); Z13.0 Encounter for screening for diseases of the blood and blood-forming organs and certain disorders involving the immune mechanism; Z13.1 Encounter for screening for diabetes mellitus; Z13.220 Encounter for screening for lipoid disorders; Z12.5 Encounter for screening for malignant neoplasm of prostate; Z13.29 Encounter for screening for other suspected endocrine disorder; Z13.228 Encounter for screening for other metabolic disorders
CPT/HCPCS: 36415; 80053; 80061; 80076; 82248; 82306; 82607; 82746; 83036; 83735; 84153; 84154; 84443; 85025; 85652; 86140

== ENCOUNTER 2025-01-22 09:05 | Outpatient (AMB) | payer MEDICARE, SELFPAY ==
[2025-01-22 09:15] VITALS: BP 107/74; PULSE 99; RESP 14; TEMP 36.7; O2SAT 97; BMI 29.0
--- NOTE | 2025-01-22 09:15 | A.OFFPC_ITS ---
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 Na Required: No Accompanied by: Self / Same As Patient Allergies No Known Allergies [No Known Allergies*] Allergy (Verified 01/22/25 09:15) Tobacco use date assessed: 01/22/25 Fall risk assessment: No Falls in past year Last assessed Fall Risk: 01/22/25 Dental Screening Dental Screen Date: 01/22/25 Did you have a dental visit in the last 12 months?: No Did you have a dental problem in the last 6 months where you did not have access to dental care?: No Was dental information given to patient?: Patient has dentist [facility] Medical History Hypertriglyceridemia Low vitamin D level Elevated ALT measurement Prediabetes Elevated PSA Hematoma of left knee region Hypertension Thrombocytopenia Deafness in right ear Surgical History History of colonoscopy (~04/29/20) Family History Mother No problems noted. Father No problems noted. 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 1. Little interest or pleasure in doing things: not at all 2. Feeling down, depressed, or hopeless: not at all 3. Trouble falling or staying asleep, or sleeping too much: not at all 4. Feeling tired or having little energy: not at all 5. Poor appetite or overeating: not at all 6. Feeling bad about yourself - or that you are a failure or have let yourself or your family down: not at all 7. Trouble concentrating on things, such as reading the newspaper or watching television: not at all 8. Moving or speaking so slowly that other people could have noticed. Or the opposite - being so fidgety or restless that you have been moving around a lot more than usual: not at all 9. Thoughts that you would be better off or of hurting yourself in some way: not at all Total score: 0 Source: Developed by Drs. Master Erwin, Anayeli Khan, Gustabo Nowak and colleagues, with an educational corinne from [employer]. Thrive Questionnaire Date Thrive assessed: 01/22/25 I am a: Patient What is your living situation today?: I have a steady place to live Within the past 12 months, did the food you bought not last and you didn't have the money to get more?: Never true Within the past 12 months, did you worry whether your food would run out before you got money to buy more?: Never true Do you have trouble paying for medicines?: No Do you have trouble getting transportation to medical appointments?: No Do you have trouble paying your heating and electricity bill?: No Do you have trouble taking care of your child, family member or friend?: No Do you have trouble with day-to-day activities such as bathing, preparing meals, shopping, managing finances, etc.?: No Are you currently unemployed and looking for a job?: No Are you interested in more education?: No Please select the resources that you would like help with: None THRIVE Score: 0 AUDIT C Alcohol Use Questionnaire (AUDIT-C) 1. How often do you have a drink containing alcohol?: Monthly or less 2. How many drinks containing alcohol do you have on a typical day when you are drinking?: 1 or 2 3. How often do you have six or more drinks on one occasion?: Never Total Score: 1 RALF-7 AMB Questionnaire RALF-7 Date RALF - 7 assessed: 01/22/25 Feeling nervous, anxious, or on edge: 0 = Not at all Not being able to stop or control worryin = Not at all Worrying too much about different things: 0 = Not at all Trouble relaxin = Not at all Being so restless that it is hard to sit still: 0 = Not at all Becoming easily annoyed or irritable: 0 = Not at all Feeling afraid as if something awful might happen: 0 = Not at all Total RALF-7 score (0-4 normal; 5-9 mild; 10-14 moderate; 15-21 severe): 0 Source: Developed by Drs. Master Erwin, Anayeli Khan, Gustabo Nowak and colleagues, with an educational corinne from [employer]. Physical exam (Primary Care) Vital Signs: Last Vital Signs Temp 98.0 F 01/22/25 09:15 Pulse 99 01/22/25 09:15 Resp 14 01/22/25 09:15 BP 107/74 01/22/25 09:15 Pulse Ox 97 01/22/25 09:15 Oxygen Delivery Method Room Air 01/22/25 09:15 BMI result Body Mass Index 29.0 Tobacco/Smoking Status: Tobacco use Status Tobacco use date assessed 01/22/25 01/22/25 09:23 Patient Tobacco Use Status Never used Tobacco 01/22/25 09:23 PHQ-9: PHQ-9 Score PHQ-9: Total score 0 01/22/25 09:24 Thrive Assessment: Date of Thrive Assessment Date Thrive assessed 01/22/25 01/22/25 09:23 Coding Level of Care Code New Pt Prev Care 40-64y(22797) Diagnoses Annual physical exam Z00.00 Assessment & Plan Assessment & Plan (1) Annual physical exam: Code(s): Z00.00 - Encounter for general adult medical examination without abnormal findings Plan: Uptodate on screening colonoscopy Plan History of Present Illness The patient is a 69-year-old male presenting with elevated Prostate-Specific Antigen (PSA), hypertriglyceridemia, and prediabetes as identified in recent blood tests. His family history includes prostate cancer, prompting continuous annual PSA monitoring. The patient denies any urinary symptoms and has an impending urology appointment for further assessment. He maintains cholesterol levels with statin therapy, with his LDL at a favorable level, though his triglycerides remain elevated. Additionally, his glucose levels are within the prediabetic range. Recent vitamin tests indicate Vitamin D deficiency, which fluctuated after discontinuing supplementation. His ch olesterol management is currently deemed satisfactory, emphasizing dietary and lifestyle adjustments for triglyceride control. The patient also describes a soreness resulting from an exercise-related impact on his sternum area, devoid of visible bruising but accompanied by discomfort upon certain movements. 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 [employer] - Exercise: Recently joined a gym; attends three times weekly - Functional Status: Active routine; drives at night occasionally without significant issues - Current Nutritional Intake: Enjoys carbohydrates; attempts moderation as advised Review of Systems - Genitourinary: Denies urinary symptoms, hesitancy, or dribbling - Gastrointestinal: Denies abdominal pain - Skeletal/Muscular: Reports soreness in sternum area after exercise Physical Exam General: Cooperative and healthy appearing Nutritional Appearance: Well nourished Orientation/consciousness: Patient oriented x3 Limitations: No limitations Head: Normal to inspection General: Appearance normal, both eyes and all related structures Neck: Normal visual inspection Chest: Normal palpation of entire chest wall Respiratory: Normal respiratory effort Neurology: Patient oriented x3 Results - Labs: - Elevated PSA - LDL cholesterol: 90 mg/dL, fasting triglycerides: 300 mg/dL - Prediabetic glucose levels - Vitamin D deficiency Plan 1. Elevated Prostate-Specific Antigen Psa - Follow up with urology evaluation for further diagnostic insights. 2. Hypertriglyceridemia - Continue with current statin medication; focus on diet and exercise. 3. Prediabetes - Adopt lifestyle modifications and monitor blood glucose levels. 4. Vitamin D Deficiency - Resume Vitamin D supplementation plan. 5. Possible Sternum Bruise - Advise caution and rest to observe any changes. Discussion Notes We discussed the elevated PSA and concluded a referral to a urologist was warranted for further investigation, including potential ultrasound testing. I reassured the patient about the relatively low risk of immediate prostate cancer concern due to the absence of symptoms and family monitoring history. Hypertriglyceridemia management continues with prescribed statins; lifestyle improvements were emphasized, specifically incorporating carb-free days. I advised addressing prediabetes with ongoing exercise and routine glucose monitoring. Recommendations to recommence Vitamin D supplementation were based on corrected tests. A minor sternum injury requires observation and avoiding high-strain activities. Patient Instructions - Follow up with urology appointment as scheduled. - Take Vitamin D supplementation as prescribed. - Monitor your glucose levels and maintain current exercise routine. - Incorporate carb-free days into your diet. - Monitor sternum discomfort and avoid strenuous activity. Medications: Discontinued amoxicillin-pot clavulanate 875-125 mg Discontinued Reason: Change Referral Type 1 tab PO BID 7 days 14 tabs 0RF
== END 2025-01-22 09:41 | disposition home or self-care (01) ==
LOC: HO.HMCSH 09:05
PROVIDERS: PCP Internal Medicine; Visit Provider Internal Medicine
DX: Z00.00 Encounter for general adult medical examination without abnormal findings (principal)

== ENCOUNTER → 2025-01-22 09:05 | Outpatient (BNVA) | payer MEDICARE, SELFPAY | PROVIDERS: PCP Internal Medicine; Visit Provider Internal Medicine | DX: Z00.00 Encounter for general adult medical examination without abnormal findings (principal); R97.20 Elevated prostate specific antigen [PSA]; E78.00 Pure hypercholesterolemia, unspecified; R73.03 Prediabetes; Z85.46 Personal history of malignant neoplasm of prostate; Z79.899 Other long term (current) drug therapy | CPT/HCPCS: 96127; 99397 ==

== ENCOUNTER 2025-03-18 14:54 | Outpatient (AMB) | payer MEDICARE, SELFPAY ==
--- NOTE | 2025-03-18 14:57 | MHC.OFFVIS ---
Intake Visit Reasons: Elevated PSA Intake Note: New patient presents today for initial visit for elevated PSA 01/17 Total PSA:4.51 01/17 Free PSA:23 Urology Medication:None Blood Thinner:None Antibiotic Allergies:None Allergies No Known Allergies (No Known Allergies*) Allergy (Verified 03/18/25 15:26) Medication List - Last Reconciled 03/18/25 by Elliot Roy MD amlodipine 5 mg PO DAILY 90 days atorvastatin 20 mg PO DAILY ciprofloxacin HCl 500 mg PO BID HPI Comments Details: [employer] - elevated PSA 01/17/25--4.51; 11/10/24-3.23, 10/15/24--2.50 Eval with Imaging US, consider proscar FH prostate cancer father History of Present Illness - The patient is a 69-year-old male presenting with elevated Prostate-Specific Antigen (PSA) levels. - PSA levels have been gradually increasing over time, with the most recent level recorded at 4.51 ng/mL on 01/17/25. - Previous PSA levels were 3.23 ng/mL on 11/11/23 and 2.50 ng/mL on 10/15/22. - The patient reports no issues with urination, maintaining a normal urination pattern and adequate sleep. - Family history is significant for prostate cancer in the patient's father, diagnosed in his 60s and treated with radiation therapy. Plan prostate biopsy Results - PSA on 01/17/25: 4.51 ng/mL - PSA on 11/11/23: 3.23 ng/mL - PSA on 10/15/22: 2.50 ng/mL - Urinalysis: Normal, negative for blood or leukocytes [facility] Medical History Hypertriglyceridemia Low vitamin D level Elevated ALT measurement Prediabetes Elevated PSA Hematoma of left knee region Hypertension Thrombocytopenia Deafness in right ear Surgical History History of colonoscopy (~04/29/20) Family History Mother No problems noted. Father No problems noted. Social History Housing: House Alcohol intake: current Alcohol intake frequency: holidays/special occasions only Patient Tobacco Use Status: Never used Tobacco service: No Current occupational status: employed Current occupation: [employer]raction [employer] Cognitive needs: No Hearing needs: Yes (b/l hearing aids) Vision needs: Yes (rx glasses) Review of Systems Const All systems reviewed & are unremarkable except as noted in HPI and below Reports no additional complaints Eyes Reports no additional complaints ENT Reports no additional complaints Card Reports no additional complaints Resp Reports no additional complaints GI Reports no additional complaints Reports as per HPI Musc Reports no additional complaints Skin/Breast Reports system reviewed and no additional complaints, except as documented Neuro Reports no additional complaints Psych Reports no additional complaints Endo Reports no additional complaints Fransicso/Lymph Reports no additional complaints Aller/Immun Reports no additional complaints Results AMB Urinalysis, Automated UA Leukoctes 0 Cristo/uL Last Edit by Chani Morgan on 03/18/25 16:32 UA Nitrite Negative Last Edit by Chani Morgan on 03/18/25 16:32 UA Urobilinogen 0.2 mg/dL Last Edit by Chani Morgan on 03/18/25 16:32 UA Protein 15 mg/dL Last Edit by Chani Morgan on 03/18/25 16:32 UA pH 6.0 Last Edit by Chani Morgan on 03/18/25 16:32 UA Blood 0 Steve/uL Last Edit by Chani Morgan on 03/18/25 16:32 UA Specific [place] 1.020 Last Edit by Chani Morgan on 03/18/25 16:32 UA Ketone Negative Last Edit by Chani Morgan on 03/18/25 16:32 UA Bilirubin 0 mg/dL Last Edit by Chani Morgan on 03/18/25 16:32 UA Glucose 0 mg/dL Last Edit by Chani Morgan on 03/18/25 16:32 Assessment & Plan Assessment & Plan (1) Elevated PSA: Code(s): R97.20 - Elevated prostate specific antigen [PSA] Category: Medical (2) Family history of prostate cancer: Code(s): Z80.42 - Family history of malignant neoplasm of prostate Category: Medical Plan Plan - Recommend prostate biopsy due to elevated PSA and family history of prostate cancer. - Biopsy to be performed under sedation in the operating room, with antibiotics prescribed pre- and post-procedure to prevent infection. - Monitor for any signs of infection post-biopsy, such as fever, and advise immediate medical attention if symptoms occur. - Discussed potential for blood in urine and semen post-procedure, with reassurance on expected healing timeline. Orders: Orders AMB Urinalysis Automated Today Z13.9 - Encounter for screening, unspecified Medications: New ciprofloxacin HCl Start Cipro 2 days prior to prostate biopsy, do not take on the morning of the prostate biopsy, continue in the evening and until antibiotics are finished 500 mg PO BID 8 tabs 0RF Patient Instructions: The patient had an opportunity to ask questions regarding treatment plan. The patient expressed understanding and agreement with the above treatment plan. The patient is aware they should contact our office by phone for worsening of their current condition or the appearance of new symptoms. Compliance is encouraged with any medications and followup testing that is ordered. It is a privilege to be allowed the opportunity to participate in the urologic care of your patient. If you have any questions or concerns regarding treatment for the above conditions please do not hesitate to contact me. The office telephone contact is [phone]. This note is constructed in part using voice recognition software. While every effort has been made to ensure accuracy border inspector errors may have been included. Yours sincerely, Elliot Roy MD Scribe Plan - Not visible on output: Patient was informed and verbally consented to the use of an ambient scribe for clinic note documentation during this visit. Coding Level of Care Code New Pt Level 4 (19920) Diagnoses Elevated PSA R97.20 Family history of prostate cancer Z80.42
== END 2025-03-18 16:00 | disposition home or self-care (01) ==
LOC: HO.HUSH 14:55
PROVIDERS: PCP Internal Medicine; Visit Provider Urology
DX: Z13.9 Encounter for screening, unspecified (principal)

== ENCOUNTER → 2025-03-18 14:54 | Outpatient (BNVA) | payer MEDICARE, SELFPAY | PROVIDERS: PCP Internal Medicine; Visit Provider Urology | DX: R97.20 Elevated prostate specific antigen [PSA] (principal); Z80.42 Family history of malignant neoplasm of prostate | CPT/HCPCS: 81003; 99202 ==

== ENCOUNTER 2025-04-03 13:21 | Outpatient (AMB) | payer MEDICARE, SELFPAY ==
--- NOTE | 2025-04-03 13:09 | MHC.OFFVIS ---
Intake Visit Reasons: Questions on Prostate biopsy Intake Note: Patient presents today via telehealth for questions on prostate biopsy Urology Medication:None Blood Thinner:None Antibiotic Allergies:None Allergies No Known Allergies (No Known Allergies*) Allergy (Verified 04/03/25 13:22) HPI Comments Details: 04/03/25 History of Present Illness - The patient is a 69-year-old male presenting with elevated prostate-specific antigen (PSA). - The patient's PSA was 3.23 last year and increased in January, prompting consideration for a prostate biopsy due to family history of prostate cancer. - The patient has been researching and inquired about imaging prior to biopsy, which was discussed - The patient is considering potential interventions such as medication to reduce prostate size. - The patient also experiences erectile dysfunction, having tried sildenafil and tadalafil, but reports significant side effects such as headaches and upset stomach. - The patient has concerns about medication interactions due to concurrent blood pressure medication use. - Discussed risks to include but not limited to pain, blood in stool, urine and semen, septicemia, need to repeat biopsy. Results - PSA level last year: 3.23 - Recent PSA increase 01/17/25--4.51 ng/mL Plan - Proceed with prostate biopsy due to elevated PSA and family history of prostate cancer. - Consider active surveillance if biopsy results indicate low-grade findings, including potential MRI follow-up and PSA monitoring. - Discussed alternative dosing strategies for tadalafil to minimize side effects, including starting with a lower dose and gradually increasing. - Prescription for tadalafil to be sent to pharmacy with GoodRx coupon to reduce cost. 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 - PSA levels have been gradually increasing over time, with the most recent level recorded at 4.51 ng/mL on 01/17/25. - Previous PSA levels were 3.23 ng/mL on 11/11/23 and 2.50 ng/mL on 10/15/22. - The patient reports no issues with urination, maintaining a normal urination pattern and adequate sleep. - Family history is significant for prostate cancer in the patient's father, diagnosed in his 60s and treated with radiation therapy. Plan prostate biopsy Results - PSA on 01/17/25: 4.51 ng/mL - PSA on 11/11/23: 3.23 ng/mL - PSA on 10/15/22: 2.50 ng/mL - Urinalysis: Normal, negative for blood or leukocytes PFSH Medical History Hypertriglyceridemia Low vitamin D level Elevated ALT measurement Prediabetes Elevated PSA Hematoma of left knee region Hypertension Thrombocytopenia Deafness in right ear Surgical History History of colonoscopy (~04/29/20) Family History Mother No problems noted. Father No problems noted. 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 [employer] Cognitive needs: No Hearing needs: Yes (b/l hearing aids) Vision needs: Yes (rx glasses) Review of Systems Const All systems reviewed & are unremarkable except as noted in HPI and below Reports no additional complaints Eyes Reports no additional complaints ENT Reports no additional complaints Card Reports no additional complaints Resp Reports no additional complaints GI Reports no additional complaints Reports as per HPI Musc Reports no additional complaints Skin/Breast Reports system reviewed and no additional complaints, except as documented Neuro Reports no additional complaints Psych Reports no additional complaints Endo Reports no additional complaints Fransisco/Lymph Reports no additional complaints Aller/Immun Reports no additional complaints Telehealth Telehealth Telehealth Platform: Telephone Location of provider rendering services: practice address Location of patient: address on file Patient Identification confirmed using: Name, : Yes Telehealth method: video Patient verbally consented to treatment: Yes Patient verbally consented to billing insurance company: Yes Patient informed of any privacy concerns related to visit: Yes Assessment & Plan Assessment & Plan (1) Elevated PSA: Code(s): R97.20 - Elevated prostate specific antigen [PSA] Category: Medical (2) Family history of prostate cancer: Code(s): Z80.42 - Family history of malignant neoplasm of prostate Category: Medical (3) Erectile dysfunction: Code(s): N52.9 - Male erectile dysfunction, unspecified Category: Medical Plan Plan - Proceed with prostate biopsy due to elevated PSA and family history of prostate cancer. - Consider active surveillance if biopsy results indicate low-grade findings, including potential MRI follow-up and PSA monitoring. - Discussed alternative dosing strategies for tadalafil to minimize side effects, including starting with a lower dose and gradually increasing. - Prescription for tadalafil to be sent to pharmacy with Vusion coupon to reduce cost. Patient Instructions: The patient had an opportunity to ask questions regarding treatment plan. The patient expressed understanding and agreement with the above treatment plan. The patient is aware they should contact our office by phone for worsening of their current condition or the appearance of new symptoms. Compliance is encouraged with any medications and followup testing that is ordered. It is a privilege to be allowed the opportunity to participate in the urologic care of your patient. If you have any questions or concerns regarding treatment for the above conditions please do not hesitate to contact me. The office telephone contact is [phone]. This note is constructed in part using voice recognition software. While every effort has been made to ensure accuracy contract sheltered workshop supervisor errors may have been included. Yours sincerely, Elliot Roy MD Scribe Plan - Not visible on output: Patient was informed and verbally consented to the use of an ambient scribe for clinic note documentation during this visit. Coding Level of Care Code Tele Est Pt Level 4 (99059) Diagnoses Elevated PSA R97.20 Family history of prostate cancer Z80.42 Erectile dysfunction N52.9
--- OUTSIDE RECORDS SUMMARY | 2025-04-03 13:53 | XMS_ITS | Clinical Summary ---
Author Organization [facility] Address [address] [place] [id number] Phone Care Team Providers Care Shoe Folder Name Role Phone Master Pollack Primary Care Provider Allergies No known active allergies Medications amLODIPine (NORVASC) 5 MG tablet Take 5 mg by mouth daily. 01/10/2022 Active atorvastatin (LIPITOR) 20 MG tablet Take 20 mg by mouth daily. 01/10/2022 Active LORazepam (ATIVAN) 1 MG tablet TAKE 1 TABLET BY MOUTH TWICE DAILY FOR 15 DAYS NEEDED 07/03/2024 Active Active Problems Problem Noted Date Diagnosed Date Tinea unguium 01/26/2022 Immunizations No known immunizations Social History Tobacco Use Types Packs/Day Years Used Date Smoking Tobacco: Never Smokeless Tobacco: Never Education Answer Date Recorded Are you interested in more education? Not on sohan e 01/01/2023 Are you concerned about learning? Not on file 01/01/2023 No 01/01/2023 No 01/01/2023 Digital Access Answer Date Recorded No 02/01/2023 No 02/01/2023 Reliable internet access at home? Not on file 02/01/2023 Device with a working camera? Not on file Sex and Gender Information Value Date Recorded Sex Assigned at Not on file Legal Sex Male 11:39 AM EDT Gender Identity Not on file Sexual Orientation Not on file Last Filed Vital Signs Vital Sign Reading Time Taken Comments Blood Pressure 137/88 07/21/2024 12:47 PM EST Pulse 71 07/21/2024 12:47 PM EST Temperature 36.7 C (98 F) 07/21/2024 12:47 PM EST Respiratory Rate 18 07/21/2024 12:47 PM EST Oxygen Saturation 95% 07/21/2024 12:47 PM EST Inhaled Oxygen Concentration - - Weight 83.9 kg (185 lb) 01/26/2022 6:48 PM EDT Height 177.8 cm (5' 10 ) 01/26/2022 6:48 PM EDT Body Mass Index 26.54 01/26/2022 6:48 PM EDT Plan of Treatment Health Maintenance Due Date Last Done Comments Adult Td,Tdap Booster 1954 LIPID PANEL 1954 DEPRESSION SCREENING 1966 HEPATITIS C SCREENING 1972 COLOGUARD 12/21/1999 COLONOSCOPY 12/21/1999 COLORECTAL CANCER SCREENING 12/21/1999 FIT TEST 12/21/1999 FOBT 12/21/1999 SIGMOIDOSCOPY 12/21/1999 VIRTUAL COLONOSCOPY 12/21/1999 PNEUMOCOCCAL VACCINES (50+ y ears) (1 of 1 - PCV) 2004 ZOSTER VACCINES (1 of 2) 2004 COVID-19 VACCINE ( - 2023-2 5 season) 2024 RSV VACCINE (1 - 1-dose 75+ series) 2029 SMOKING STATUS SCREENING (On ce After 26 Yrs) Completed 01/26/2022 HEPATITIS A VACCINES Aged Out No long er eligible based on patient's age to complete this topic HIB VACCINES Aged Out No longer eligi ble based on patient's age to complete this topic MENINGOCOCCAL VACCINES (ACWY) Aged Out No longer eligible based on patient's age to complete this topic MENINGOCOCCAL VACCINES (B) Aged Out N o longer eligible based on patient's age to complete this topic Medical Devices Not on file Insurance [place] MEDICARE PPO BLUE REPLACEMENT [facility] MEDICARE PPO BLUE REPLACEMENT [facility] MEDICARE PPO [address] [place] [address] MEDICARE PPO [address] [address] [place] [address] MEDICARE PPO BLUE [address] [address] MEDICARE PPO BLUE REPLACEMENT [facility] MEDICARE PPO BLUE REPLACEMENT [facility] MEDICARE PPO BLUE REPLACEMENT Care Teams Shoe Folder Relationship Specialty Start Date End Date Master Pollack DO [address] [place] [id number] PCP - General 01/18/22 Additional Source Comments The information contained in this document represents components of the legal health record. It is not the complete legal health record.[facility]
== END 2025-04-03 16:13 | disposition home or self-care (01) ==
LOC: HO.HUSH 13:21
PROVIDERS: PCP Internal Medicine; Visit Provider Urology
DX: R97.20 Elevated prostate specific antigen [PSA] (principal); Z80.42 Family history of malignant neoplasm of prostate; N52.9 Male erectile dysfunction, unspecified
CPT/HCPCS: 99214

== ENCOUNTER → 2025-06-19 08:41 | Outpatient (BNV) | payer MEDICARE, SELFPAY | PROVIDERS: PCP Internal Medicine; Visit Provider Radiology Diagnostic Radiology | DX: R97.20 Elevated prostate specific antigen [PSA] (principal) | CPT/HCPCS: 72197; 76377 ==

== ENCOUNTER 2025-06-19 08:42 | Outpatient (REF) | payer MEDICARE, SELFPAY ==
--- NOTE | ~2025-06-19 | MR_ITS ---
EXAMINATION: MR PROSTATE WITHOUT THEN WITH IV CONTRAST, MR EXAM UNLISTED HISTORY: R97.20 - Elevated prostate specific antigen [PSA] TECHNIQUE: 1.5T body coil survey of the pelvis was performed. Phase array coil imaging of the prostate was performed in multiplanar high resolution axial, coronal, sagittal fast spin echo T2 and axial T1 weighted imaging sequences. Axial diffusion imaging at intermediate and high field performed with ADC mapping. Next, 9 mL Gadavist was given by intravenous infusion, and dynamic axial imaging performed. 3-D reconstructions and post-processing were performed on an independent workstation by the radiologist for biopsy planning using image fusion. COMPARISON: There are no prior studies available for comparison. CLINICAL DATA: Most recent PSA: 4.51 ng/mL on 01/17/2025. PSA Density: 0.078 ng/mL squared Prostate Biopsy: None reported FINDINGS: Prostate size: 4.9 x 5.5 x 4.1 cm. Calculated prostate volume is 57.5 mL. Hemorrhage: None. Transitional Zone: There is mild heterogeneous nodular hypertrophy of the transitional zone. Peripheral Zone: There are multiple linear and wedge-shaped T2 hypointensities within the peripheral zone which can be seen in the setting of prostatitis of scarring. In addition, there are multiple areas of interest in the peripheral zone as described below: Area of interest #1: Location: Left lateral peripheral zone in the mid gland/apex measuring up to 9 mm (series 7, images 20-21). DWI PI-RADS v2.1 score: 4 T2 PI-RADS v2.1 score: 4 DCE PI-RADS v2.1 score: + Overall PI-RADS v2.1 score: 4 Capsular contact: yes Extracapsular extension: None Seminal vesicle invasion: None Neurovascular bundle involvement: None Area of interest #2: Location: Left anterior peripheral zone at the apex measuring up to 11 mm (series 7, images 21-23). DWI PI-RADS v2.1 score: 4 T2 PI-RADS v2.1 score: 4 DCE PI-RADS v2.1 score: + Overall PI-RADS v2.1 score: 4 Capsular contact: None Extracapsular extension: None Seminal vesicle invasion: None Neurovascular bundle involvement: None Area of interest #3: Location: Right posterolateral peripheral zone at the mid gland/apex measuring up to 3 mm in size (series 7, image 23). DWI PI-RADS v2.1 score: 4 T2 PI-RADS v2.1 score: 4 DCE PI-RADS v2.1 score: - Overall PI-RADS v2.1 score: 4 Capsular contact: yes Extracapsular extension: None Seminal vesicle invasion: None Neurovascular bundle involvement: None Seminal Vesicles/Ejaculatory Ducts: Symmetric and normal in signal and caliber. Pelvic Lymph Nodes: No obturator or internal iliac lymph nodes meeting size criteria for adenopathy. Marrow Signal: Normal marrow signal and enhancement without focal lesion identified. MR/MR Prostate wo/w con IMPRESSION: Multiple foci of abnormal signal intensity are identified within the prostate bilaterally as described above, highly suspicious for clinically significant prostate carcinoma. PI-RADS 4: High (clinically significant cancer is likely to be present) PI-RADS Assessment Categories PI-RADS 1: Very low (clinically significant cancer is highly unlikely to be present) PI-RADS 2: Low (clinically significant cancer is unlikely to be present) PI-RADS 3: Intermediate (the presence of clinically significant cancer is equivocal) PI-RADS 4: High (clinically significant cancer is likely to be present) PI-RADS 5: Very high (clinically significant cancer is highly likely to be present) [employer]. MR Prostate Imaging Reporting and Data System version 2.1. [email or web address] Electronically signed by: Master Connor MD 06/19/2025 10:42 AM EDT
== END 2025-06-19 08:43 | disposition home or self-care (01) ==
LOC: HO.MRI 08:42
PROVIDERS: PCP Internal Medicine; Visit Provider Urology
DX: R97.20 Elevated prostate specific antigen [PSA] (principal)
CPT/HCPCS: 72197; 76377; A9585

== ENCOUNTER 2025-06-24 07:29 | Outpatient (AMB) | payer MEDICARE, SELFPAY ==
--- NOTE | 2025-06-24 07:29 | A.OFFVIS_ITS ---
Intake Visit Reasons: Follow up/MRI Intake Note: Patient presents today via telehealth for follow up MRI results Imaging done 06/19/2025 MRI Urology Medication:Tadalafil Blood Thinner:None Antibiotic Allergies:None Senior Python Developer Required: No Accompanied by: Self / Same As Patient Allergies No Known Allergies (No Known Allergies*) Allergy (Verified 06/24/25 07:30) Medication List - Last Reconciled 06/24/25 by Elliot Roy MD amlodipine 5 mg PO DAILY 90 days atorvastatin 20 mg PO DAILY cholecalciferol (vitamin D3) 125 mcg PO DAILY tadalafil 5 mg PO DAILY 30 days HPI Comments Details: 06/24/2025--Lester is being followed for elevated PSA last PSA was 01/17/2025 was 4.51 ng/mL. The patient is status post MRI prostate, IMPRESSION: Multiple foci of abnormal signal intensity are identified within the prostate bilaterally as described above, highly suspicious for clinically significant prostate carcinoma. PI-RADS 4: High (clinically significant cancer is likely to be present) Plan MRI guided targeted prostate biopsies. Continue tadalafil/ED 04/03/25-- The patient is a 69-year-old male presenting with elevated prostate- specific antigen (PSA). - The patient's PSA was 3.23 last year and increased in January, prompting consideration for a prostate biopsy due to family history of prostate cancer. - The patient has been researching and inquired about imaging prior to biopsy, which was discussed - The patient is considering potential interventions such as medication to reduce prostate size. - The patient also experiences erectile dysfunction, having tried sildenafil and tadalafil, but reports significant side effects such as headaches and upset stomach. - The patient has concerns about medication interactions due to concurrent blood pressure medication use. - Discussed risks to include but not limited to pain, blood in stool, urine and semen, septicemia, need to repeat biopsy. Results - PSA level last year: 3.23 - Recent PSA increase 01/17/25--4.51 ng/mL Plan - Proceed with prostate biopsy due to elevated PSA and family history of prostate cancer. - Consider active surveillance if biopsy results indicate low-grade findings, including potential MRI follow-up and PSA monitoring. - Discussed alternative dosing strategies for tadalafil to minimize side effects, including starting with a lower dose and gradually increasing. - Prescription for tadalafil to be sent to pharmacy with Kay coupon to reduce cost. 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 - PSA levels have been gradually increasing over time, with the most recent level recorded at 4.51 ng/mL on 01/17/25. - Previous PSA levels were 3.23 ng/mL on 11/11/23 and 2.50 ng/mL on 10/15/22. - The patient reports no issues with urination, maintaining a normal urination pattern and adequate sleep. - Family history is significant for prostate cancer in the patient's father, diagnosed in his 60s and treated with radiation therapy. Plan prostate biopsy Results - PSA on 01/17/25: 4.51 ng/mL - PSA on 11/11/23: 3.23 ng/mL - PSA on 10/15/22: 2.50 ng/mL - Urinalysis: Normal, negative for blood or leukocytes PFSH Medical History Hypertriglyceridemia Low vitamin D level Elevated ALT measurement Prediabetes Elevated PSA Hematoma of left knee region Hypertension Thrombocytopenia Deafness in right ear Surgical History History of colonoscopy (~04/29/20) Family History Mother No problems noted. Father No problems noted. 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 [employer] Cognitive needs: No Hearing needs: Yes (b/l hearing aids) Vision needs: Yes (rx glasses) Review of Systems Const All systems reviewed & are unremarkable except as noted in HPI and below Reports no additional complaints Eyes Reports no additional complaints ENT Reports no additional complaints Card Reports no additional complaints Resp Reports no additional complaints GI Reports no additional complaints Reports as per HPI Musc Reports no additional complaints Skin/Breast Reports system reviewed and no additional complaints, except as documented Neuro Reports no additional complaints Psych Reports no additional complaints Endo Reports no additional complaints Fransisco/Lymph Reports no additional complaints Aller/Immun Reports no additional complaints Telehealth Telehealth Telehealth Platform: Rest Devices Location of provider rendering services: practice address Location of patient: address on file Patient Identification confirmed using: Name, : Yes Telehealth method: video Patient verbally consented to treatment: Yes Patient verbally consented to billing insurance company: Yes Patient informed of any privacy concerns related to visit: Yes Results Reviewed Results Reviewed: Date of Service: 06/19/25 HISTORY: R97.20 - Elevated prostate specific antigen [PSA] TECHNIQUE: 1.5T body coil survey of the pelvis was performed. Phase array coil imaging of the prostate was performed in multiplanar high resolution axial, coronal, sagittal fast spin echo T2 and axial T1 weighted imaging sequences. Axial diffusion imaging at intermediate and high field performed with ADC mapping. Next, 9 mL Gadavist was given by intravenous infusion, and dynamic axial imaging performed. 3-D reconstructions and post-processing were performed on an independent workstation by the radiologist for biopsy planning using image fusion. COMPARISON: There are no prior studies available for comparison. CLINICAL DATA: Most recent PSA: 4.51 ng/mL on 01/17/2025. PSA Density: 0.078 ng/mL squared Prostate Biopsy: None reported FINDINGS: Prostate size: 4.9 x 5.5 x 4.1 cm. Calculated prostate volume is 57.5 mL. Hemorrhage: None. Transitional Zone: There is mild heterogeneous nodular hypertrophy of the transitional zone. Peripheral Zone: There are multiple linear and wedge-shaped T2 hypointensities within the peripheral zone which can be seen in the setting of prostatitis of scarring. In addition, there are multiple areas of interest in the peripheral zone as described below: Area of interest #1: Location: Left lateral peripheral zone in the mid gland/apex measuring up to 9 mm (series 7, images 20-21). DWI PI-RADS v2.1 score: 4 T2 PI-RADS v2.1 score: 4 DCE PI-RADS v2.1 score: + Overall PI-RADS v2.1 score: 4 Capsular contact: yes Extracapsular extension: None Seminal vesicle invasion: None Neurovascular bundle involvement: None Area of interest #2: Location: Left anterior peripheral zone at the apex measuring up to 11 mm (series 7, images 21-23). DWI PI-RADS v2.1 score: 4 T2 PI-RADS v2.1 score: 4 DCE PI-RADS v2.1 score: + Overall PI-RADS v2.1 score: 4 Capsular contact: None Extracapsular extension: None Seminal vesicle invasion: None Neurovascular bundle involvement: None Area of interest #3: Location: Right posterolateral peripheral zone at the mid gland/apex measuring up to 3 mm in size (series 7, image 23). DWI PI-RADS v2.1 score: 4 T2 PI-RADS v2.1 score: 4 DCE PI-RADS v2.1 score: - Overall PI-RADS v2.1 score: 4 Capsular contact: yes Extracapsular extension: None Seminal vesicle invasion: None Neurovascular bundle involvement: None Seminal Vesicles/Ejaculatory Ducts: Symmetric and normal in signal and caliber. Pelvic Lymph Nodes: No obturator or internal iliac lymph nodes meeting size criteria for adenopathy. Marrow Signal: Normal marrow signal and enhancement without focal lesion identified. IMPRESSION: Multiple foci of abnormal signal intensity are identified within the prostate bilaterally as described above, highly suspicious for clinically significant prostate carcinoma. PI-RADS 4: High (clinically significant cancer is likely to be present) PI-RADS Assessment Categories PI-RADS 1: Very low (clinically significant cancer is highly unlikely to be present) PI-RADS 2: Low (clinically significant cancer is unlikely to be present) PI-RADS 3: Intermediate (the presence of clinically significant cancer is equivocal) PI-RADS 4: High (clinically significant cancer is likely to be present) PI-RADS 5: Very high (clinically significant cancer is highly likely to be present) Assessment & Plan Assessment & Plan (1) Elevated PSA: Code(s): R97.20 - Elevated prostate specific antigen [PSA] Category: Medical (2) Family history of prostate cancer: Code(s): Z80.42 - Family history of malignant neoplasm of prostate Category: Medical (3) Erectile dysfunction: Code(s): N52.9 - Male erectile dysfunction, unspecified Category: Medical (4) Abnormal MRI, pelvis: Code(s): R93.5 - Abnormal findings on diagnostic imaging of other abdominal regions, including retroperitoneum Category: Medical Plan Plan MRI guided targeted prostate biopsies. Continue tadalafil/ED Patient Instructions: The patient had an opportunity to ask questions regarding treatment plan. The patient expressed understanding and agreement with the above treatment plan. The patient is aware they should contact our office by phone for worsening of their current condition or the appearance of new symptoms. Compliance is encouraged with any medications and followup testing that is ordered. It is a privilege to be allowed the opportunity to participate in the urologic care of your patient. If you have any questions or concerns regarding treatment for the above conditions please do not hesitate to contact me. The office telephone contact is [phone]. This note is constructed in part using voice recognition software. While every effort has been made to ensure accuracy test engine mechanic errors may have been included. Yours sincerely, Elliot Ryo MD Coding Level of Care Code Tele Est Pt Level 4 (25578) Diagnoses Elevated PSA R97.20 Family history of prostate cancer Z80.42 Erectile dysfunction N52.9 Abnormal MRI, pelvis R93.5
--- OUTSIDE RECORDS SUMMARY | 2025-06-24 07:31 | XMS_ITS | Clinical Summary ---
Author Organization [facility] Address [address] [place] [phone] Phone Care Team Providers Care Hand Finisher Name Role Phone Master Pollack Primary Care Provider Allergies No known active allergies Medications amLODIPine (NORVASC) 5 MG tablet Take 5 mg by mouth daily. 2 Active atorvastatin (LIPITOR) 20 MG tablet Take 20 mg by mouth daily. 2 Active LORazepam (ATIVAN) 1 MG tablet TAKE 1 TABLET BY MOUTH TWICE DAILY FOR 15 DAYS NEEDED 4 Active tadalafiL (CIALIS) 5 MG tablet START WITH 1 TABLET TUESDAY, TUESDAY, AND TUESDAY FOR 2 WEEKS AND INCREASE TO DAILY LONG TOLERATING 5 Active Active Problems Problem Noted Date Diagnosed Date Tinea unguium 01/26/2022 Encounters Date Type Department Care Team Description 05/25/2025 11:50 AM EDT Office Visit [facility] [address] [id number] Patrice Mejia, Jocelyn Parkinson, PEDRITO Bilateral impacted cerumen (Primary Dx) from Last 3 Months Immunizations No known immunizations Social History Tobacco [...] Sign Reading Time Taken Comments Blood Pressure 144/85 05/25/2025 11:36 AM EDT Pulse 102 05/25/2025 11:36 AM EDT Temperature 36.3 C (97.3 F) 05/25/2025 11:36 AM EDT Respiratory Rate 16 05/25/2025 11:36 AM EDT Oxygen Saturation 97% 05/25/2025 11:36 AM EDT Inhaled Oxygen Concentration - - Weight 88.5 kg (195 lb) 05/25/2025 11:36 AM EDT Height 177.8 cm (5' 10 ) 05/25/2025 11:36 AM EDT Body Mass Index 27.98 05/25/2025 11:36 AM EDT Plan of Treatment Health Maintenance Due Date Last Done Comments Adult Td,Tdap Booster 1954 LIPID PANEL 1954 DEPRESSION SCREENING 1966 HEPATITIS C SCREENING 1972 COLOGUARD 12/21/1999 COLONOSCOPY 12/21/1999 COLORECTAL CANCER SCREENING 12/21/1999 FIT TEST 12/21/1999 FOBT 12/21/1999 SIGMOIDOSCOPY 12/21/1999 VIRTUAL COLONOSCOPY 12/21/1999 PNEUMOCOCCAL VACCINES (50+ y ears) (1 of 1 - PCV) 2004 ZOSTER VACCINES (1 of 2) 2004 INFLUENZA VACCINE (#1) 2025 COVID-19 VACCINE ( - 2024-2 6 season) 2025 RSV VACCINE (1 - 1-dose 75+ series) 2029 SMOKING STATUS SCREENING (On ce After 26 Yrs) Completed 05/25/2025 HEPATITIS A VACCINES Aged Out No long [...] this topic Medical Devices Not on file Procedures Procedure Name Priority Date/Time Associated Diagnosis Comments EAR CERUMEN REMOVAL Routine 05/25/2025 1 1:58 AM EDT Bilateral impacted cerumen from Last 3 Months Results * EAR CERUMEN REMOVAL (05/25/2025 11:58 AM EDT) Other Narrative Jocelyn Lebron FNP - 05/25/2025 11:58 AM EDT Jocelyn Lebron FNP 05/25/2025 12:11 PM Cerumen Removal Date/Time: 05/25/2025 11:58 AM Visualization: Otoscopy Cerumen in: Bilateral ears Removed with: Irrigation Patient tolerated procedure well: Yes Comments: Normal exam after irrigation [place] Protocol: Verbal consent obtained: Yes Written consent obtained: No Time out: Immediately prior to the procedure, a time out was called to verify that there is a signed consent form and that the correct patient, planned procedure, site and side are consistent with documentation and that necessary equipment and/or blood products are available prior to the start of the case. Patrice Mejia PA-C PROCEDURE/MINOR SURGICAL ORDERABLES Final Result from Last 3 Months Insurance [place] BLUE [facility] [place] PPO BLUE [address] [address] MEDICARE PPO BLUE [address] [place] [place] [address] MEDICARE PPO BLUE REPLACEMENT [facility] MEDICARE PPO BLUE REPLACEMENT [address] [address] MEDICARE PPO BLUE [address] [place] [address] MEDICARE PPO BLUE REPLACEMENT [place] BLUE REPLACEMENT Care Teams Hand Finisher Relationship Specialty Start Date End Date Master Pollack DO [address] [place] [id number] PCP - General 01/18/22 Additional Source Comments The information contained in this document represents components of the legal health record. It is not the complete legal health record.[facility]
== END 2025-06-24 11:30 | disposition home or self-care (01) ==
LOC: HO.HUSH 07:29
PROVIDERS: PCP Internal Medicine; Visit Provider Urology
DX: R97.20 Elevated prostate specific antigen [PSA] (principal); Z80.42 Family history of malignant neoplasm of prostate; N52.9 Male erectile dysfunction, unspecified; R93.5 Abnormal findings on diagnostic imaging of other abdominal regions, including retroperitoneum
CPT/HCPCS: 99214